=== PATIENT | female | born 1965 | race Caucasian/White ===

== ENCOUNTER → 2016-11-08 | Outpatient (CLI) | payer OTHER ==
--- NOTE | 2016-11-08 11:29 | CARD ---
APPROVED REPORT EXAM: Two-dimensional and M-mode echocardiogram with Doppler and color Doppler. Other Information Quality : GoodHR: 76bpm Rhythm : NSR INDICATION Abnormal ECG RISK FACTORS Obesity 2D DIMENSIONS RVDd3.5 (2.9-3.5cm)Left Atrium(2D)2.4 (1.6-4.0cm) IVSd1.0 (0.7-1.1cm)Aortic Root(2D)3.2 (2.0-3.7cm) LVDd4.1 (3.9-5.9cm)LVOT Diameter2.3 (1.8-2.4cm) PWd1.0 (0.7-1.1cm)LVDs2.8 (2.5-4.0cm) FS (%) 31.6 %SV45.3 ml LVEF(%)60.0 (>50%) Aortic Valve LVOT Peak Jeancarlos.139.3cm/s Mitral Valve MV E Ipkcsesv12.9cm/sMV E Peak Gr.3mmHg MV DECEL [id number] A Zamsurrp69.8cm/s MV E Mean Gr.1mmHgE/A Ratio0.8 MV A Iwpexscv28hb Pulmonary Valve PV Peak Zlnllhex563.0cm/s Pulmonary Vein S1 Nhzbygkd64.1cm/sD2 Yxznqfru08.5cm/s PVa [id number] LEFT VENTRICLE The left ventricle is normal size. There is normal left ventricular wall thickness. The left ventricu lar systolic function is normal and the ejection fraction is within normal range. The Ejection Fracti on is 60-65%. There is normal LV segmental wall motion. Transmitral Doppler flow pattern is Grade I-a bnormal relaxation pattern. RIGHT VENTRICLE The right ventricle is normal size. There is normal right ventricular wall thickness. The right ventr icular systolic function is normal. ATRIA The left atrium size is normal. The right atrium size is normal. The interatrial septum is intact wit h no evidence for an atrial septal defect or patent foramen ovale as noted on 2-D or Doppler imaging. AORTIC VALVE The aortic valve is trileaflet. Doppler and Color Flow revealed no significant aortic regurgitation. There is no significant aortic valvular stenosis. MITRAL VALVE The mitral valve leaflets are mildly thickened. There is no evidence of mitral valve prolapse. There is no mitral valve stenosis. Doppler and Color Flow revealed no mitral valve regurgitation noted. TRICUSPID VALVE Doppler and Color Flow revealed no tricuspid valve regurgitation noted. Unable to determine pulmonary artery pressure at exam time. PULMONIC VALVE The pulmonic valve is not well visualized but appears to open well. Doppler and Color Flow revealed n o pulmonic valvular regurgitation. There is no pulmonic valvular stenosis by spectral Doppler. GREAT VESSELS The aortic root is normal in size. The ascending aorta is normal in size. The IVC is normal in size a nd collapses >50% with inspiration. PERICARDIAL EFFUSION There is no evidence of significant pericardial effusion. Critical Notification Critical Value: No <Conclusion> The left ventricular systolic function is normal and the ejection fraction is within normal range. Th e Ejection Fraction is 60-65%. There is normal LV segmental wall motion.
== END | disposition home or self-care (01) ==
LOC: ECHO 08:00
PROVIDERS: ATTEND Family Medicine
DX: R94.31 Abnormal electrocardiogram [ECG] [EKG] (principal)
CPT/HCPCS: 93306

== ENCOUNTER → 2017-10-08 | Outpatient (CLI) | payer OTHER | END | disposition home or self-care (01) | LOC: KCIC MRI 14:47 | DX: M12.88 Other specific arthropathies, not elsewhere classified, other specified site (principal); M71.38 Other bursal cyst, other site; M48.061 Spinal stenosis, lumbar region without neurogenic claudication | CPT/HCPCS: 72148 ==

== ENCOUNTER → 2018-01-28 | Outpatient (CLI) | payer OTHER ==
--- NOTE | 2018-01-28 16:53 | KCIC ---
Lateral lumbar spine, 3 views, 01/28/2018: HISTORY: Spondylolisthesis Lateral views of the lumbar spine were obtained in the supine position and then in the upright position with flexion and extension. In the supine position there is grade 1 anterolisthesis of L4 relative to L5, not clearly delineated due to some obliquity of patient positioning. With upright extension there is approximately 4 mm of anterior subluxation of the L4 vertebral body relative to L5. This increases to approximate 6 mm on the upright flexion view. There appears to be moderate facet joint arthropathy at multiple levels in the lower lumbar spine. There are mild scattered marginal spurs. This limited exam is otherwise unremarkable. IMPRESSION: Mild anterolisthesis at L4-5 as described above. Electronically signed by: Earnest Pablo MD (01/28/2018 4:50 PM) [facility]
== END | disposition home or self-care (01) ==
LOC: KCIC 10:01
PROVIDERS: ATTEND Neurological Surgery
DX: M43.16 Spondylolisthesis, lumbar region (principal)
CPT/HCPCS: 72100

== ENCOUNTER → 2018-06-30 | Outpatient (CLI) | payer OTHER ==
[2018-04-07 11:00] VITALS: BP 143/80
[~2018-06-30] MED LIST: ASCO10002 PO; CHOL100013 PO; DOCU-109 PO; LEVO150T PO; LEVO750T5 PO; LORA0.5T PO; MELO15TA23 PO; METH750T2 PO; OMEP20TA8 PO; OXYC1TAB15 PO
--- NOTE | 2018-06-30 14:49 | KCIC ---
EXAM: Lumbar spine, 2 views. HISTORY: Fusion. COMPARISON: 04/06/2018. FINDINGS: 2 views lumbar spine are obtained. There is instrumented posterior spinal fusion with disc space fusion device placement at L4-L5. There is grade 1 anterolisthesis at this level which measures 6 mm. The disc space fusion device extends beyond the posterior margin of the L4 disc space. There is no evidence of instrumentation loosening. There is mild lumbar levocurvature or levoscoliosis. The vertebral alarcon are normal in height and the nonfused disc spaces are intact. IMPRESSION: 1. Instrumented fusion at L4-L5. There is grade 1 anterolisthesis at this level which appears slightly increased compared to a CT dated 04/06/2018, possibly projectional 2. No acute finding. Electronically signed by: Julisa Panchal MD (06/30/2018 2:46 PM) [id number]
== END | disposition home or self-care (01) ==
LOC: KCIC 13:11
PROVIDERS: ATTEND Neurological Surgery
DX: M43.26 Fusion of spine, lumbar region (principal); M43.16 Spondylolisthesis, lumbar region; Z98.1 Arthrodesis status
CPT/HCPCS: 72100

== ENCOUNTER → 2020-08-28 | Outpatient (CLI) | payer OTHER ==
[2018-04-07 11:00] VITALS: BP 143/80
[~2020-08-28] MED LIST changes: +ASCO100019 PO; -ASCO10002 PO; +METH-562 PO; -METH750T2 PO
--- NOTE | 2020-08-28 15:48 | CARD ---
MR#: [id number] Date of Study: 08/28/2020 Ordering Physician: CAROL DON, Referring Physician: CAROL DON, Tech: Leydi Fleming [facility] APPROVED REPORT EXAM: Two-dimensional and M-mode echocardiogram with Doppler and color Doppler. Other Information Quality : Fair Technically limited study due to body habitus. INDICATION Pre-Op Gastric Bypass 2D DIMENSIONS RVDd2.2 (2.9-3.5cm)Left Atrium(2D)3.1 (1.6-4.0cm) IVSd0.7 (0.7-1.1cm)Aortic Root(2D)3.1 (2.0-3.7cm) LVDd4.7 (3.9-5.9cm)LVOT Diameter2.0 (1.8-2.4cm) PWd0.8 (0.7-1.1cm)LVDs2.8 (2.5-4.0cm) FS (%) 30.0 %SV75.4 ml LVEF(%)60.0 (>50%) Aortic Valve AoV Peak Jeancarlos.139.0cm/sAoV VTI33.0cm AO Peak GR.7.7mmHgLVOT Peak Jeancarlos.143.0cm/s AO Mean GR.6mmHgAVA (VMAX)3.16cm2 LUANA (VTI)3.20cm2 Mitral Valve MV E Dgdmphwl983.4cm/sMV DECEL [id number] MV A Nbmrflbr60.4cm/sE/A Ratio1.2 Tricuspid Valve TR P. Eyhimrjv244fv/sRAP PMYBWMDT5zuKo TR Peak Gr.42pdJxKMSB37pmZc Pulmonary Vein S1 Pocoepum60.0cm/sD2 Hcxszvhw77.1cm/s LEFT VENTRICLE The left ventricle is normal size. There is normal left ventricular wall thickness. The left ventricu lar systolic function is normal and the ejection fraction is within normal range. The Ejection Fracti on is 60-65%. There is normal LV segmental wall motion. Transmitral Doppler flow pattern is Grade I-a bnormal relaxation pattern. RIGHT VENTRICLE The right ventricle cavity is small. The right ventricular systolic function is normal. ATRIA The left atrium size is normal. The right atrium size is normal. The interatrial septum is intact wit h no evidence for an atrial septal defect or patent foramen ovale as noted on 2-D or Doppler imaging. AORTIC VALVE The aortic valve is not well visualized but appears to be functioning normally by Doppler interrogati on. Doppler and Color Flow revealed no significant aortic regurgitation. There is no significant aort ic valvular stenosis. MITRAL VALVE The mitral valve is normal in structure and function. There is no evidence of mitral valve prolapse. There is no mitral valve stenosis. Doppler and Color Flow revealed no mitral valve regurgitation note d. TRICUSPID VALVE The tricuspid valve is normal in structure and function. Doppler and Color Flow revealed physiologica l tricuspid regurgitation. The PA pressure was estimated at 23 mmHg. There is no tricuspid valve sten osis. PULMONIC VALVE The pulmonic valve is not well visualized. Doppler and Color Flow revealed no pulmonic valvular regur gitation. There is no pulmonic valvular stenosis. GREAT VESSELS The aortic root is normal in size. The ascending aorta is not well seen. The IVC is normal in size an d collapses >50% with inspiration. PERICARDIAL EFFUSION There is no evidence of significant pericardial effusion. Critical Notification Critical Value: No <Conclusion> The left ventricular systolic function is normal and the ejection fraction is within normal range. Th e Ejection Fraction is 60-65%. There is normal LV segmental wall motion. Signed by : Carol Don, Electronically Approved : 08/28/2020 15:48:11
== END ==
LOC: ECHO 08:47
PROVIDERS: ATTEND Internal Medicine Cardiovascular Disease
DX: Z01.810 Encounter for preprocedural cardiovascular examination (principal); I07.1 Rheumatic tricuspid insufficiency
CPT/HCPCS: 93306

== ENCOUNTER → 2021-02-13 | Outpatient (CLI) | payer OTHER ==
[2018-04-07 11:00] VITALS: BP 143/80
[~2021-02-13] MED LIST changes: +IOHEXOL 350 MG/ML 100 ML VIAL. IV ONE
--- NOTE | 2021-02-13 10:52 | RAD ---
EXAM: CT angiography of the chest, abdomen and pelvis with intravenous contrast. HISTORY: Family history of aneurysm. TECHNIQUE: Computed tomographic images of the chest, abdomen and pelvis were obtained following the a dministration of intravenous contrast according to angiography protocol. Multiplanar reformatting was performed and three dimensional maximum intensity projection images were obtained. *One or more of the following individualized dose reduction techniques were utilized for this examina tion: 1. Automated exposure control. 2. Adjustment of the mA and/or kV according to patient size. 3. Use of iterative reconstruction technique. COMPARISON: None. FINDINGS: Chest: The heart is normal in size. The thoracic aorta is normal in caliber. There is no dissection o r aneurysm. There is a standard aortic arch branching pattern. No pathologically enlarged mediastinal or hilar lymph node is seen. There is no pneumothorax or pleural effusion. There is no infiltrate. T here is a 3 mm nodule within the right middle lobe likely along the pleural fissure, favor a benign f issural lymph node. There are few tiny cysts or pneumatoceles within the medial right lung base. Ther e is no acute or suspicious osseous lesion. There is endplate remodeling involving the thoracic spine . There are few small endplate Schmorl's nodes. Abdomen and pelvis: No hepatic lesion is seen. The gallbladder, pancreas and adrenal glands are unrem arkable. There are small splenules adjacent to an otherwise unremarkable spleen. There is no hydronep hrosis. There is no solid or cystic renal lesion. There is no appendicitis. There is no bowel obstruc tion. There is no abnormal bowel wall thickening. There are surgical anastomosis involving the stomac h and small bowel. The bladder and uterus are unremarkable. There is a 2.1 cm right ovarian cyst. The aorta is normal in caliber. There is no dissection. There is a partially 50 percent narrowing at the origin of the celiac axis on sagittal reconstructed images. There is an incidental retroaortic le ft renal vein. There is no lymphadenopathy. There is instrumented posterior spinal fusion and disc sp sushant fusion device placement at L4-L5. There is grade 1 anterolisthesis at this level. There is no susanna picious or acute osseous finding. IMPRESSION: 1. No evidence of aortic aneurysm or dissection. No acute finding. 2. 2.1 cm right ovarian cyst. Given the presumed menopausal or perimenopausal status of the patient, pelvic sonography can be performed to confirm benignity. 3. 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 4. 3 mm suspected benign fissural lymph node within the right middle lobe. 5. Postoperative changes involving the stomach and lower lumbar spine. Electronically signed by: Julisa Panchal MD (02/13/2021 10:49 AM) [id number]
== END ==
LOC: CT 08:46
PROVIDERS: ATTEND Internal Medicine Cardiovascular Disease
DX: N83.201 Unspecified ovarian cyst, right side (principal); Z82.49 Family history of ischemic heart disease and other diseases of the circulatory system
CPT/HCPCS: 71275; 74174; Q9967